=== PATIENT | male | born 1960 | race Caucasian/White ===

== ENCOUNTER 2022-05-07 14:04 | Emergency (ER) | payer BC ==
[2022-05-07] MEDS ORDERED: Bupivacaine 0.5% 10 ML SDV INJECT ONE ×2 (16:42→17:08)
== END 2022-05-07 18:16 | disposition home or self-care (01) ==
LOC: MW.ED 14:04
DX: S61.211A Laceration without foreign body of left index finger without damage to nail, initial encounter (principal); Z88.0 Allergy status to penicillin; Z90.49 Acquired absence of other specified parts of digestive tract; W26.8XXA Contact with other sharp object(s), not elsewhere classified, initial encounter
CPT/HCPCS: 12001; 73130; 99283; J3490